=== PATIENT | female | born 2000 | race Caucasian/White ===

== ENCOUNTER 2025-02-27 17:54 | Emergency (ER) | payer BC, SELFPAY ==
[2025-02-27 17:55] VITALS: BP 116/85
[2025-02-27 18:27] LABS: Hemoglobin 10.4 g/dL (12.0-16.0); Mean Corp Hgb Conc. 32.5 g/dL (33.0-37.0); Mean Corpuscular Hgb 27.1 pg (27.0-31.0); Mean Corpuscular Volume 83.3 fL (81.0-99.0); Mean Platelet Volume 12.1 fL (7.4-10.4); Platelet Count 255 10^3/uL (130-400); Red Blood Cell Count 3.84 10^6/uL (4.20-5.40); Red Cell Dist. Width 14.4 % (11.5-14.5); White Blood Cell Count 9.6 10^3/uL (4.8-10.8)
[2025-02-27 18:38] LABS: ALT (SGPT) 15 U/L (0-35); AST (SGOT) 18 U/L (14-36); Albumin 4.3 g/dl (3.5-5.0); Blood Urea Nitrogen 9 mg/dl (7-17); Calcium 9.8 mg/dl (8.4-10.2); Carbon Dioxide 25 mmol/L (22-30); Chloride 105 mmol/L (98-107); Glucose 98 mg/dl (70-99); Lipase 63 U/L (23-300); Potassium 3.8 mmol/L (3.5-5.1); Sodium 139 mmol/L (135-145); Total Bilirubin 0.4 mg/dl (0.2-1.3); Total Protein 7.2 g/dl (6.3-8.2); eGFR > 60.00
[2025-02-27 18:39] LABS: HCG, Serum Qualitative Screen Negative
[2025-02-27 18:42] LABS: Alkaline Phosphatase 59 U/L (38-126)
[2025-02-27 18:49] LABS: Urine Albumin Negative (Neg - Trace); Urine Bilirubin Negative (Negative); Urine Character Clear (Clear); Urine Color Yellow; Urine Glucose Negative (Negative); Urine Ketone Negative (Negative); Urine Leukocyte 1+ (Negative); Urine Nitrite Negative (Negative); Urine Occult Blood Negative (Negative); Urine Specific Gravity 1.005 (<1.030); Urine Urobilinogen Negative (Neg - 1+)
[2025-02-27 19:38] LABS: Eosinophils 5 % (0-6); Lymphocytes 16 % (20-51); Monocytes 6 % (2-9); Segmented Neutrophils 73 % (42-75)
[2025-02-27 19:39] LABS: Platelets Checked Yes
[2025-02-27 19:40] LABS: Anisocytosis 2+; Hypochromasia 2+; Microcytosis 2+; Normal RBC Morphology No; Poikilocytosis 1+; Total Cells Counted 100
[2025-02-27 20:44] LABS: Urine Bacteria Few (Negative); Urine Red Blood Cell 0-2 /HPF (0-2); Urine Squamous Cell >30 /LPF (Few); Urine White Cell 16-20 /HPF (0-5)
[2025-02-27 21:10] VITALS: BP 120/82
[2025-02-27 21:29] VITALS: BMI 27.5
[2025-02-27 21:35] VITALS: BP 114/67
[2025-02-27 22:00] VITALS: BP 113/67
--- NOTE | 2025-02-27 22:11 | ED.GENMED ---
History of Present Illness
General
Chief Complaint: Abdominal Pain
Time Seen by Provider: 02/27/25 21:57
History of Present Illness
History of Present Illness:
24-year-old otherwise healthy female presents to the emergency department for evaluation of upper abdominal pain has been ongoing for the past 3 to 4 weeks. Pain is described as a dull gnawing pain that was initially intermittent but seems to be
worsening. She has nausea when eating but denies any worsening of pain. She notes having 2 episodes of dark/black stool over the past 2 weeks, most recently yesterday morning. She does admit the Pepto-Bismol administration but the dark stool
occurred before using this. She has no fevers or night sweats. She is on an SSRI and does use intermittent NSAIDs as is consume alcohol once weekly but the SSRI began 1 week ago.
Review of Systems
Review of Systems
Allergies reviewed?: Yes
All Other Systems: ROS reviewed and negative except as documented in HPI and ROS
Phy Exam
Physical Exam
Physical Exam:
GEN: Well appearing, NAD, WDWN
HEENT: Oral mucosa moist, no scleral icterus
Cardiac: Regular rate
Lung: No respiratory distress, no tachypnea
Abdomen: Soft, mild epigastric tenderness, no rigidity, negative José sign
MSK: No gross deformity or injuries
Skin: Good color, no pallor or jaundice, no rashes
Neuro: AO x3, moves all extremities freely
Psych: Calm, cooperative
Course
Orders/Labs/Results
Orders:
Orders
02/27/25 18:02
Test Result ONCE
02/27/25 18:09
Complete Blood Count/With Diff Urgent
Comprehensive Metabolic Panel Urgent
HCG, Serum Qualitative Screen Urgent
Lipase Urgent
Manual Differential Urgent
Urinalysis Reflex To Culture Urgent
Date Specimen was Collected: 02/27/25
Time Specimen was Collected: 18:07
Urine Microscopic Reflex Cult Urgent
Urine Culture Urgent
ADRI[place] Source: U
Specimen Description:
Date Specimen was Collected: 02/27/25
Time Specimen was Collected: 18:07
Abnormal Lab Results
02/27/25
18:09
RBC 3.84 L 10^6/uL
(4.20-5.40)
Hgb 10.4 L g/dL
(12.0-16.0)
Hct 32.0 L %
(37.0-47.0)
MCHC 32.5 L g/dL
(33.0-37.0)
MPV 12.1 H fL
(7.4-10.4)
Lymphocytes (Manual) 16 L %
(20-51)
Leukocyte Esterase Rfl 1+ A
(Negative)
Urine WBC (Reflex) 16-20 A /HPF
(0-5)
Urine Bacteria (Reflex) Few A
(Negative)
02/27/25 18:09
02/27/25 18:09
Vital Signs
Initial and Last Documented VS:
Initial Vital Signs
Temp Pulse Resp BP Pulse Ox
98.4 F 89 16 116/85 100
02/27/25 17:55 02/27/25 17:55 02/27/25 17:55 02/27/25 17:55 02/27/25 17:55
Last Documented Vital Signs
Temp Pulse Resp BP Pulse Ox
98.4 F 78 18 113/67 98
02/27/25 17:55 02/27/25 21:10 02/27/25 21:10 02/27/25 22:00 02/27/25 22:00
MDM/Problems Addressed
MDM/Problems Addressed:
Constellation of symptoms is most closely consistent with gastritis/peptic ulcer disease. Will start the patient on PPIs and Carafate, no indication for imaging at this time.
*Critical Care Note
Total Time (30-74mins, 75-104mins- exclusive of procedures): Not Applicable
ED Attending Note
-
Portions of this chart may have been created with voice recognition software.� Occasional wrong word or��sound alike� substitutions may have occurred due to the inherent limitations of voice recognition software.
Discharge Plan
Departure
Patient Disposition: Home (Routine Discharge)
Date of Disposition: 02/27/25
Time of Disposition: 22:15
Patient with high blood pressure during this ER visit?: No
Discharge Problem:
Gastritis
Instructions: Gastritis (DC)
Prescriptions:
New
pantoprazole 40 mg tablet,delayed release (DR/EC)
40 mg PO BID 14 Days Qty: 28 0RF
sucralfate [Carafate] 1 gram tablet
1 g PO AC Qty: 60 0RF
Referrals:
Kamari Beasley, DO [Active] - Call in 1-3 days for appt
Interventions
Interventions:
*Risk Screen - Suicide Last Done: 02/27/25 21:29
*General Assessment Last Done: 02/27/25 21:29
*Neglect/Abuse Screening Last Done: 02/27/25 21:29
*ED- Fall Risk Assessment Last Done: 02/27/25 21:27
*ED COVID-19 Vaccine History Last Done: 02/27/25 21:27
*Nursing Disposition Last Done: 02/27/25 22:22
JL-Taktgl-Pfksggdyga Assessment Last Done: 02/27/25 21:29
Discharge Date and Time
Discharge Date/Time: 02/27/25 22:27
Print Language: GU[place]
== END 2025-02-27 22:27 | disposition home or self-care (01) ==
LOC: EMR 17:54
PROVIDERS: Emergency Medicine; EMERGENCY PHYSICIAN Emergency Medicine; FAMILY PHYSICIAN Nurse Practitioner Family
DX: K29.70 Gastritis, unspecified, without bleeding (principal)
CPT/HCPCS: 99283; 80053; 81003; 81015; 83690; 84703; 85025; 87086